=== PATIENT | male | born 1960 | race African-American/Black ===

== ENCOUNTER 2018-07-16 13:22 | Inpatient (IN) | payer OTHER ==
[2018-07-16 16:06] VITALS: BMI 22.8
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
[2018-07-16] MEDS ORDERED: MAGNESIUM CITRATE 300 ML BOTTLE PO PRN (17:19)
[2018-07-16] MEDS ORDERED: guaiFENesin 200 MG/10 ML 10 ML UNIT-DOSE CUPS PO PRN (17:19)
[2018-07-16] MEDS ORDERED: LOPERAMIDE HCL 2 MG CAPSULE PO PRN (17:19)
[2018-07-16] MEDS ORDERED: MENTHOL/PHENOL 1 EACH UD MM PRN (17:19)
[2018-07-16] MEDS ORDERED: MAG HYDROX/AL HYDROX/SIMETH 30 ML UNIT-DOSE CUP PO PRN (17:19)
[2018-07-16] MEDS ORDERED: MAGNESIUM HYDROX 2400MG/30ML ORAL SUSPENSION 30 ML CUP PO PRN (17:19)
[2018-07-16] MEDS ORDERED: ACETAMINOPHEN 325 MG TABLET (FP) PO PRN (17:19)
[2018-07-16] MEDS ORDERED: P-EPHED 60MG/TRIPROLIDI 2.5MG TABLET PO PRN (17:19)
[2018-07-16] MEDS ORDERED: TUBERCULIN PPD 5 TU/0.1ML VIAL ID ONE (20:40)
[2018-07-16] MEDS: CARVEDILOL 3.125 MG TABLET (FP) PO SCH (22:36)
[2018-07-16] MEDS: THIAMINE HCL 100 MG TABLET (FP) PO SCH (22:36)
[2018-07-16] MEDS: APIXABAN 5 MG TABLET PO SCH (22:36)
[2018-07-16] MEDS: ATORVASTATIN CA 80 MG TABLET (FP) PO SCH (22:36)
[2018-07-17] MEDS: LISINOPRIL 5 MG TABLET (FP) PO SCH (10:13)
[2018-07-17] MEDS: FUROSEMIDE 40 MG TABLET (FP) PO SCH (10:13)
[2018-07-17] MEDS: CARVEDILOL 3.125 MG TABLET (FP) PO SCH ×2 (10:13→21:12)
[2018-07-17] MEDS: ASPIRIN 81 MG CHEWABLE TABLETS PO SCH (10:13)
[2018-07-17] MEDS: APIXABAN 5 MG TABLET PO SCH ×2 (10:13→21:12)
[2018-07-17] MEDS: PRENATAL VITAMINS W/ FOLIC ACID TABLET (FP) PO SCH (10:13)
[2018-07-17 12:10] LABS: ALBUMIN 2.9 g/dl (3.4-5.0); ALK PHOS 86 U/L (45-117); ANION GAP 8 MMOL/L (8-16); BILIRUBIN,TOTAL 0.7 mg/dL (0.2-1); BLOOD UREA NITROGEN 17 mg/dL (7-18); CHLORIDE 105 mmol/L (98-107); CO2 29 mmol/L (21-32); CREATININE 1.2 mg/dL (0.55-1.3); GLUCOSE,RANDOM 146 mg/dL (74-106); POTASSIUM 3.5 mmol/L (3.5-5.1); SGOT/AST 35 U/L (15-37); SGPT/ALT 51 U/L (13-61); SODIUM 142 mmol/L (136-145); TOT PROT 6.4 g/dl (6.4-8.2)
[2018-07-17 12:13] LABS: HEMATOCRIT 40.2 % (35.4-49); HEMOGLOBIN 12.7 GM/dL (11.7-16.9); MCHC 31.5 g/dl (32.0-35.9); MEAN CELL VOLUME 98.2 fl (80-96); MEAN PLT VOLUME 8.5 fl (7.5-11.1); PLATELET COUNT 158 K/MM3 (134-434); RBC 4.09 M/mm3 (4.00-5.60); RDW 17.2 % (11.9-15.9); WHITE BLOOD COUNT 2.3 K/mm3 (4.0-10.0)
[2018-07-17] MEDS: ATORVASTATIN CA 80 MG TABLET (FP) PO SCH (21:12)
[2018-07-17] MEDS: THIAMINE HCL 100 MG TABLET (FP) PO SCH (21:12)
[2018-07-18] MEDS: ASPIRIN 81 MG CHEWABLE TABLETS PO SCH (09:33)
[2018-07-18] MEDS: APIXABAN 5 MG TABLET PO SCH ×2 (09:33→21:26)
[2018-07-18] MEDS: PRENATAL VITAMINS W/ FOLIC ACID TABLET (FP) PO SCH (09:33)
[2018-07-18] MEDS: FUROSEMIDE 40 MG TABLET (FP) PO SCH (09:34)
[2018-07-18] MEDS: CARVEDILOL 3.125 MG TABLET (FP) PO SCH ×2 (10:26→21:26)
[2018-07-18] MEDS: LISINOPRIL 5 MG TABLET (FP) PO SCH (10:26)
[2018-07-18] MEDS: ATORVASTATIN CA 80 MG TABLET (FP) PO SCH (21:26)
[2018-07-18] MEDS: THIAMINE HCL 100 MG TABLET (FP) PO SCH (21:26)
[2018-07-19] MEDS: LISINOPRIL 5 MG TABLET (FP) PO SCH (09:35)
[2018-07-19] MEDS: PRENATAL VITAMINS W/ FOLIC ACID TABLET (FP) PO SCH (09:35)
[2018-07-19] MEDS: ASPIRIN 81 MG CHEWABLE TABLETS PO SCH (09:35)
[2018-07-19] MEDS: FUROSEMIDE 40 MG TABLET (FP) PO SCH (09:35)
[2018-07-19] MEDS: CARVEDILOL 3.125 MG TABLET (FP) PO SCH ×2 (09:35→21:15)
[2018-07-19] MEDS: APIXABAN 5 MG TABLET PO SCH ×2 (09:35→21:15)
[2018-07-19] MEDS: THIAMINE HCL 100 MG TABLET (FP) PO SCH (21:15)
[2018-07-19] MEDS: ATORVASTATIN CA 80 MG TABLET (FP) PO SCH (21:15)
[2018-07-19] MEDS: MELATONIN 5 MG TABLETS PO PRN (22:13)
[2018-07-20] MEDS: PRENATAL VITAMINS W/ FOLIC ACID TABLET (FP) PO SCH (10:18)
[2018-07-20] MEDS: FUROSEMIDE 40 MG TABLET (FP) PO SCH (10:18)
[2018-07-20] MEDS: CARVEDILOL 3.125 MG TABLET (FP) PO SCH ×2 (10:18→21:06)
[2018-07-20] MEDS: LISINOPRIL 5 MG TABLET (FP) PO SCH (10:18)
[2018-07-20] MEDS: APIXABAN 5 MG TABLET PO SCH ×2 (10:18→21:06)
[2018-07-20] MEDS: ASPIRIN 81 MG CHEWABLE TABLETS PO SCH (10:18)
[2018-07-20] MEDS: THIAMINE HCL 100 MG TABLET (FP) PO SCH (21:06)
[2018-07-20] MEDS: ATORVASTATIN CA 80 MG TABLET (FP) PO SCH (21:06)
[2018-07-20] MEDS: MELATONIN 5 MG TABLETS PO PRN (21:07)
[2018-07-21] MEDS: PRENATAL VITAMINS W/ FOLIC ACID TABLET (FP) PO SCH (10:11)
[2018-07-21] MEDS: ASPIRIN 81 MG CHEWABLE TABLETS PO SCH (10:11)
[2018-07-21] MEDS: CARVEDILOL 3.125 MG TABLET (FP) PO SCH ×2 (10:11→21:29)
[2018-07-21] MEDS: FUROSEMIDE 40 MG TABLET (FP) PO SCH (10:11)
[2018-07-21] MEDS: LISINOPRIL 5 MG TABLET (FP) PO SCH (10:11)
[2018-07-21] MEDS: APIXABAN 5 MG TABLET PO SCH ×2 (10:11→21:29)
[2018-07-21] MEDS: MELATONIN 5 MG TABLETS PO PRN (21:28)
[2018-07-21] MEDS: ATORVASTATIN CA 80 MG TABLET (FP) PO SCH (21:29)
[2018-07-21] MEDS: THIAMINE HCL 100 MG TABLET (FP) PO SCH (21:29)
[2018-07-22] MEDS: LISINOPRIL 5 MG TABLET (FP) PO SCH (10:03)
[2018-07-22] MEDS: APIXABAN 5 MG TABLET PO SCH ×2 (10:03→21:07)
[2018-07-22] MEDS: PRENATAL VITAMINS W/ FOLIC ACID TABLET (FP) PO SCH (10:03)
[2018-07-22] MEDS: CARVEDILOL 3.125 MG TABLET (FP) PO SCH ×2 (10:03→21:08)
[2018-07-22] MEDS: FUROSEMIDE 40 MG TABLET (FP) PO SCH (10:03)
[2018-07-22] MEDS: ASPIRIN 81 MG CHEWABLE TABLETS PO SCH (10:03)
--- NOTE | 2018-07-22 14:37 | PN ---
[facility] Progress Note Note: PT C/O LOSS OF APPETITE AND FATIGUE. ALERT O X 3. NAD. OOB AMBULATES WITH STEADY GAIT. Vital Signs - 24 hr 07/21/18 07/22/18 07/22/18 22:00 00:30 03:30 Temperature Pulse Rate 93 H Respiratory 18 18 Rate Blood Pressure 116/88 07/22/18 06:55 Temperature 97.7 F Pulse Rate 90 Respiratory 18 Rate Blood Pressure 122/90 Laboratory Tests 07/17/18 07/17/18 07/17/18 10:00 10:00 10:00 WBC 2.3 L RBC 4.09 Hgb 12.7 Hct 40.2 MCV 98.2 H MCH 31.0 MCHC 31.5 L RDW 17.2 H Plt Count 158 MPV 8.5 Sodium 142 Potassium 3.5 Chloride 105 Carbon Dioxide 29 Anion Gap 8 BUN 17 Creatinine 1.2 Creat Clearance w eGFR 61.76 Random Glucose 146 H Calcium 8.0 L Total Bilirubin 0.7 AST 35 ALT 51 Alkaline Phosphatase 86 Total Protein 6.4 Albumin 2.9 L RPR Titer Nonreactive RANDOM GLUCOSE 146 MG/DL (DENIES HX DM ON ADMISSION) A:R/O HYPERGLYCEMIA PLAN:FASTING BGM X 3 DAYS.
[2018-07-22] MEDS: THIAMINE HCL 100 MG TABLET (FP) PO SCH (21:08)
[2018-07-22] MEDS: ATORVASTATIN CA 80 MG TABLET (FP) PO SCH (21:08)
[2018-07-23] MEDS: CARVEDILOL 3.125 MG TABLET (FP) PO SCH ×2 (10:30→21:10)
[2018-07-23] MEDS: FUROSEMIDE 40 MG TABLET (FP) PO SCH (10:30)
[2018-07-23] MEDS: PRENATAL VITAMINS W/ FOLIC ACID TABLET (FP) PO SCH (10:30)
[2018-07-23] MEDS: APIXABAN 5 MG TABLET PO SCH ×2 (10:31→21:10)
[2018-07-23] MEDS: ASPIRIN 81 MG CHEWABLE TABLETS PO SCH (10:31)
[2018-07-23] MEDS: LISINOPRIL 5 MG TABLET (FP) PO SCH (10:31)
[2018-07-23] MEDS: ATORVASTATIN CA 80 MG TABLET (FP) PO SCH (21:10)
[2018-07-23] MEDS: THIAMINE HCL 100 MG TABLET (FP) PO SCH (21:10)
[2018-07-24] MEDS: APIXABAN 5 MG TABLET PO SCH ×2 (09:38→22:00)
[2018-07-24] MEDS: CARVEDILOL 3.125 MG TABLET (FP) PO SCH ×2 (09:38→22:00)
[2018-07-24] MEDS: FUROSEMIDE 40 MG TABLET (FP) PO SCH (09:38)
[2018-07-24] MEDS: PRENATAL VITAMINS W/ FOLIC ACID TABLET (FP) PO SCH (09:38)
[2018-07-24] MEDS: LISINOPRIL 5 MG TABLET (FP) PO SCH (09:38)
[2018-07-24] MEDS: ASPIRIN 81 MG CHEWABLE TABLETS PO SCH (09:38)
--- NOTE | 2018-07-24 11:43 | PN ---
[facility] Progress Note Note: PATIENT SEEN FOR C/O POOR APPETITE AFTER STARTING HEART MEDICATIONS. PATIENT HAS HX OF PE, CHF AND HLD. PATIENT ADMITTED TO REHAB FOR ETOH DEPENDENCE. PATIENT DENIES FEVER, N/V/D AND WEIGHT LOSS AT THIS TIME. Laboratory Tests 07/17/18 07/17/18 07/17/18 10:00 10:00 10:00 WBC 2.3 L RBC 4.09 Hgb 12.7 Hct 40.2 MCV 98.2 H MCH 31.0 MCHC 31.5 L RDW 17.2 H Plt Count 158 MPV 8.5 Sodium 142 Potassium 3.5 Chloride 105 Carbon Dioxide 29 Anion Gap 8 BUN 17 Creatinine 1.2 Creat Clearance w eGFR 61.76 POC Glucometer Random Glucose 146 H Calcium 8.0 L Total Bilirubin 0.7 AST 35 ALT 51 Alkaline Phosphatase 86 Total Protein 6.4 Albumin 2.9 L RPR Titer Nonreactive 07/23/18 07/24/18 07:05 06:39 WBC RBC Hgb Hct MCV MCH MCHC RDW Plt Count MPV Sodium Potassium Chloride Carbon Dioxide Anion Gap BUN Creatinine Creat Clearance w eGFR POC Glucometer 121 159 Random Glucose Calcium Total Bilirubin AST ALT Alkaline Phosphatase Total Protein Albumin RPR Titer Vital Signs Temperature 97.5 F L 07/24/18 06:51 Pulse Rate 101 H 07/24/18 06:51 Respiratory Rate 16 07/24/18 06:51 Blood Pressure 128/92 07/24/18 06:51 O2 Sat by Pulse Oximetry (%) PE: ALERT AND ORIENTED X 3 SKIN WARM AND DRY GI SOFT, NT, ND EXT FULL ROM, AMB AD [place] A/P: POOR APPETITE CURRENTLY ON GLUCERNA SUPPLEMENT BID, WILL CONTINUE ALL CARDIAC MEDS TO BE CONTINUED ORDERED WILL ADD PERIACTIN 4MG BEFORE BREAKFAST FOR APPETITE STIMULATION FOR 5 DAYS CONTINUE TO MONITOR CLINICALLY
[2018-07-24] MEDS: THIAMINE HCL 100 MG TABLET (FP) PO SCH (22:00)
[2018-07-24] MEDS: ATORVASTATIN CA 80 MG TABLET (FP) PO SCH (22:00)
[2018-07-25] MEDS: CYPROHEPTADINE HCL 4 MG TABLET PO SCH (06:58)
[2018-07-25] MEDS: CARVEDILOL 3.125 MG TABLET (FP) PO SCH ×2 (09:49→21:14)
[2018-07-25] MEDS: ASPIRIN 81 MG CHEWABLE TABLETS PO SCH (09:49)
[2018-07-25] MEDS: LISINOPRIL 5 MG TABLET (FP) PO SCH (09:49)
[2018-07-25] MEDS: FUROSEMIDE 40 MG TABLET (FP) PO SCH (09:49)
[2018-07-25] MEDS: PRENATAL VITAMINS W/ FOLIC ACID TABLET (FP) PO SCH (09:49)
[2018-07-25] MEDS: APIXABAN 5 MG TABLET PO SCH ×2 (09:50→21:14)
[2018-07-25] MEDS: THIAMINE HCL 100 MG TABLET (FP) PO SCH (21:14)
[2018-07-25] MEDS: ATORVASTATIN CA 80 MG TABLET (FP) PO SCH (21:14)
[2018-07-26] MEDS: CYPROHEPTADINE HCL 4 MG TABLET PO SCH (08:36)
[2018-07-26] MEDS: ASPIRIN 81 MG CHEWABLE TABLETS PO SCH (09:47)
[2018-07-26] MEDS: PRENATAL VITAMINS W/ FOLIC ACID TABLET (FP) PO SCH (09:47)
[2018-07-26] MEDS: LISINOPRIL 5 MG TABLET (FP) PO SCH (09:47)
[2018-07-26] MEDS: CARVEDILOL 3.125 MG TABLET (FP) PO SCH ×2 (09:48→21:49)
[2018-07-26] MEDS: FUROSEMIDE 40 MG TABLET (FP) PO SCH (09:48)
[2018-07-26] MEDS: APIXABAN 5 MG TABLET PO SCH ×2 (11:48→21:49)
[2018-07-26] MEDS: ATORVASTATIN CA 80 MG TABLET (FP) PO SCH (21:49)
[2018-07-26] MEDS: THIAMINE HCL 100 MG TABLET (FP) PO SCH (21:49)
[2018-07-27] MEDS: CYPROHEPTADINE HCL 4 MG TABLET PO SCH (07:12)
[2018-07-27] MEDS: LISINOPRIL 5 MG TABLET (FP) PO SCH (10:13)
[2018-07-27] MEDS: PRENATAL VITAMINS W/ FOLIC ACID TABLET (FP) PO SCH (10:13)
[2018-07-27] MEDS: FUROSEMIDE 40 MG TABLET (FP) PO SCH (10:14)
[2018-07-27] MEDS: CARVEDILOL 3.125 MG TABLET (FP) PO SCH ×2 (10:14→21:13)
[2018-07-27] MEDS: APIXABAN 5 MG TABLET PO SCH ×2 (10:50→21:12)
[2018-07-27] MEDS: ASPIRIN 81 MG CHEWABLE TABLETS PO SCH (10:50)
--- NOTE | 2018-07-27 12:39 | PN ---
[facility] Progress Note Note: PT C/O FATIGUE AND LOSS OF APPETITE. REPORTS EASILY TIRED ON/OFF WHEN AMBULATING SHORT DISTANCE. ALSO REPORTS "I FEEL HUNGRY IN MY STOMACH BUT TASTE IS AWFUL. CAN'T SMELL THE FOOD". PT DENIES CHEST PAIN,DIZZINESS,NAUSEA OR VOMITING. REPORTS OCCASIONAL COUGH-UNPRODUCTIVE. DENIES SORE THROAT DENIES HX OF ASTHMA OR COPD AND DENIES HX DM(SEE H/P FOR COMPLETE HISTORY). Vital Signs - 24 hr 07/26/18 07/27/18 07/27/18 20:13 00:30 03:30 Temperature 98.1 F Pulse Rate 92 H Respiratory 20 18 18 Rate Blood Pressure 111/86 07/27/18 06:34 Temperature 97.9 F Pulse Rate 97 H Respiratory 16 Rate Blood Pressure 126/97 Laboratory Tests 07/17/18 07/17/18 07/17/18 10:00 10:00 10:00 WBC 2.3 L RBC 4.09 Hgb 12.7 Hct 40.2 MCV 98.2 H MCH 31.0 MCHC 31.5 L RDW 17.2 H Plt Count 158 MPV 8.5 Sodium 142 Potassium 3.5 Chloride 105 Carbon Dioxide 29 Anion Gap 8 BUN 17 Creatinine 1.2 Creat Clearance w eGFR 61.76 POC Glucometer Random Glucose 146 H Calcium 8.0 L Total Bilirubin 0.7 AST 35 ALT 51 Alkaline Phosphatase 86 Total Protein 6.4 Albumin 2.9 L RPR Titer Nonreactive 07/23/18 07/24/18 07/25/18 07:05 06:39 06:57 WBC RBC Hgb Hct MCV MCH MCHC RDW Plt Count MPV Sodium Potassium Chloride Carbon Dioxide Anion Gap BUN Creatinine Creat Clearance w eGFR POC Glucometer 121 159 128 Random Glucose Calcium Total Bilirubin AST ALT Alkaline Phosphatase Total Protein Albumin RPR Titer CARDIAC:S1 S2 RRR, NO MURMUR NOTED LUNGS:CLEAR TO AUSCULTATE; NO WHEEZE OR RHONCHI CXR FROM [facility] DONE 07/11/18 COMPARED TO THEIR EARLIER TEST ON IMPROVED RIGHT LATERAL BASILAR OPACITY CONSISTENT WITH IMPROVING INFARCT. NO ADDITIONAL OPACITIES. NO SIGNIFICANT EFFUSION. NO PNEUMOTHORECES ABDOMEN:SOFT,NT,+BS EXTREMITIES:NO EDEMA NOTED ORAL EXAM:TEETH IN POOR STATE OF HYGIENE. OROPHARYNX WNL PLAN:CONTINUE DIETARY SUPPLEMENT FLUID TOLERATED CONTINUE PRESENT MEDS RE-EVALUATE PT NEEDED. TRANSFER TO ER IF IN ACUTE DISTRESS WHEN NECESSARY.
--- NOTE | 2018-07-27 15:37 | EKG ---
Test Reason : Blood Pressure : / mmHG Vent. Rate : 087 BPM Atrial Rate : 087 BPM P-R Int : 168 ms QRS Dur : 144 ms QT Int : 434 ms P-R-T Axes : 075 -46 105 degrees QTc Int : 522 ms NORMAL SINUS RHYTHM POSSIBLE LEFT ATRIAL ENLARGEMENT LEFT AXIS DEVIATION LEFT BUNDLE BRANCH BLOCK ABNORMAL ECG NO PREVIOUS ECGS AVAILABLE Confirmed by EDMUNDO DOMINGUEZ, JONATHAN ([id number]) on 07/27/2018 3:37:04 PM Referred By: Tanya DEAL Confirmed By:JONATHAN WYATT MD
[2018-07-27] MEDS: THIAMINE HCL 100 MG TABLET (FP) PO SCH (21:13)
[2018-07-27] MEDS: ATORVASTATIN CA 80 MG TABLET (FP) PO SCH (21:13)
[2018-07-28] MEDS: CYPROHEPTADINE HCL 4 MG TABLET PO SCH (07:42)
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
[2018-07-28] MEDS: LISINOPRIL 5 MG TABLET (FP) PO SCH (09:51)
[2018-07-28] MEDS: ASPIRIN 81 MG CHEWABLE TABLETS PO SCH (09:51)
[2018-07-28] MEDS: FUROSEMIDE 40 MG TABLET (FP) PO SCH (09:51)
[2018-07-28] MEDS: CARVEDILOL 3.125 MG TABLET (FP) PO SCH ×2 (09:51→21:09)
[2018-07-28] MEDS: PRENATAL VITAMINS W/ FOLIC ACID TABLET (FP) PO SCH (09:51)
[2018-07-28] MEDS: APIXABAN 5 MG TABLET PO SCH ×2 (09:51→21:09)
[2018-07-28] MEDS: ATORVASTATIN CA 80 MG TABLET (FP) PO SCH (21:09)
[2018-07-28] MEDS: THIAMINE HCL 100 MG TABLET (FP) PO SCH (21:09)
[2018-07-29] MEDS: CYPROHEPTADINE HCL 4 MG TABLET PO SCH (07:26)
[2018-07-29] MEDS: PRENATAL VITAMINS W/ FOLIC ACID TABLET (FP) PO SCH (09:51)
[2018-07-29] MEDS: FUROSEMIDE 40 MG TABLET (FP) PO SCH (09:51)
[2018-07-29] MEDS: ASPIRIN 81 MG CHEWABLE TABLETS PO SCH (09:51)
[2018-07-29] MEDS: APIXABAN 5 MG TABLET PO SCH ×2 (09:51→21:05)
[2018-07-29] MEDS: CARVEDILOL 3.125 MG TABLET (FP) PO SCH ×2 (09:51→21:05)
[2018-07-29] MEDS: LISINOPRIL 5 MG TABLET (FP) PO SCH (09:51)
[2018-07-29] MEDS: ATORVASTATIN CA 80 MG TABLET (FP) PO SCH (21:05)
[2018-07-29] MEDS: MELATONIN 5 MG TABLETS PO PRN (21:06)
[2018-07-29] MEDS: THIAMINE HCL 100 MG TABLET (FP) PO SCH (21:06)
[2018-07-30 06:44] VITALS: PULSE 101; TEMP 97.8
--- NOTE | 2018-07-30 08:48 | PN ---
[facility] Progress Note Note: PT COMPLETED REHAB AND DISCHARGED TODAY. PT WAS SEEN BY HIS COUNSELLOR, RICKY MARLEY AND PT HAS BEEN REFERRED TO [facility] ON [address] [place] [address] FOR CD AFTERCARE. PT REPORTS HE HAS A MEDICAL PROVIDER, DR KUMAR AT [facility] ON [address] [place], [place] FOR MEDICAL MANAGEMENT. 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 REPORTS HE HAS OWN MEDS AND DOES NOT NEED COURTESY RX. ALERT O X 3. DENIES S/H/I. Home Medications Medication Instructions Recorded cloNIDine HCL [Catapres -] 0.1 mg PO BID 03/06/15 Apixaban [Eliquis -] 10 mg PO BID 07/27/18 Aspirin [Aspirin EC] 81 mg PO DAILY 07/27/18 Carvedilol [Coreg -] 3.125 mg PO BID 07/27/18 Folic Acid 1 mg PO DAILY 07/27/18 Furosemide [Lasix] 40 mg PO DAILY 07/27/18 Lisinopril [Zestril] 5 mg PO DAILY 07/27/18 Vital Signs - 24 hr 07/29/18 07/30/18 07/30/18 21:57 00:30 03:30 Temperature Pulse Rate 96 H Respiratory 18 18 18 Rate Blood Pressure 124/78 07/30/18 06:43 Temperature 97.8 F Pulse Rate 101 H Respiratory 16 Rate Blood Pressure 124/90 Laboratory Tests 07/17/18 07/17/18 07/17/18 10:00 10:00 10:00 WBC 2.3 L RBC 4.09 Hgb 12.7 Hct 40.2 MCV 98.2 H MCH 31.0 MCHC 31.5 L RDW 17.2 H Plt Count 158 MPV 8.5 Sodium 142 Potassium 3.5 Chloride 105 Carbon Dioxide 29 Anion Gap 8 BUN 17 Creatinine 1.2 Creat Clearance w eGFR 61.76 POC Glucometer Random Glucose 146 H Calcium 8.0 L Total Bilirubin 0.7 AST 35 ALT 51 Alkaline Phosphatase 86 Total Protein 6.4 Albumin 2.9 L RPR Titer Nonreactive 07/23/18 07/24/18 07/25/18 07:05 06:39 06:57 WBC RBC Hgb Hct MCV MCH MCHC RDW Plt Count MPV Sodium Potassium Chloride Carbon Dioxide Anion Gap BUN Creatinine Creat Clearance w eGFR POC Glucometer 121 159 128 Random Glucose Calcium Total Bilirubin AST ALT Alkaline Phosphatase Total Protein Albumin RPR Titer NAD MEDICALLY STABLE PLAN:FOLLOW UP WITH CD AFTERCARE ON 07/31/18 AT 09:00 A.M FOLLOW UP WITH PCP WITH COPY OF LAB RESULT FOR MEDICAL MANAGEMENT NEXT WEEK APPOINTMENT.
[2018-07-30] MEDS: PRENATAL VITAMINS W/ FOLIC ACID TABLET (FP) PO SCH (09:42)
[2018-07-30] MEDS: FUROSEMIDE 40 MG TABLET (FP) PO SCH (09:42)
[2018-07-30] MEDS: APIXABAN 5 MG TABLET PO SCH (09:42)
[2018-07-30] MEDS: ASPIRIN 81 MG CHEWABLE TABLETS PO SCH (09:42)
[2018-07-30] MEDS: LISINOPRIL 5 MG TABLET (FP) PO SCH (09:42)
[2018-07-30] MEDS: CARVEDILOL 3.125 MG TABLET (FP) PO SCH (09:42)
[2018-07-30 11:17] VITALS: BP 121/87
== END 2018-07-30 10:30 | disposition home or self-care (01) | DRG 772 ==
LOC: YASAS 13:22 → Y5N 20:10
PROVIDERS: ADMIT Neuromusculoskeletal Medicine & OMM; ATTEND Neuromusculoskeletal Medicine & OMM
PROC: HZ42ZZZ Group Counseling for Substance Abuse Treatment, Cognitive-Behavioral (ICD-10-PCS; principal; 2018-07-16)
DX: F10.20 Alcohol dependence, uncomplicated (principal); F17.210 Nicotine dependence, cigarettes, uncomplicated; I10 Essential (primary) hypertension; E78.5 Hyperlipidemia, unspecified; H54.40 Blindness, one eye, unspecified eye; B18.2 Chronic viral hepatitis C; R76.11 Nonspecific reaction to tuberculin skin test without active tuberculosis; R63.8 Other symptoms and signs concerning food and fluid intake; Z86.711 Personal history of pulmonary embolism; Z87.438 Personal history of other diseases of male genital organs
CPT/HCPCS: 36415; 80053; 82962; 85027; 86593; 93005; 93010